=== PATIENT | female | born 1980 | race African-American/Black ===

== ENCOUNTER 2020-06-17 02:34 | Emergency (ER) | payer SELFPAY ==
[2020-06-17] MEDS ORDERED: Cephalexin 500 MG Cap PO ONE (03:12)
[2020-06-17] MEDS ORDERED: traMADol 50 MG Tab PO ONE (03:12)
[2020-06-17] MEDS ORDERED: Ibuprofen 600 MG Tab PO ONE (03:12)
--- NOTE | 2020-06-17 03:15 | EDM.PDOC ---
ED HPI GENERAL MEDICAL PROBLEM - General Chief Complaint: ENT Problem Stated Complaint: TOOTH PAIN Time Seen by Provider: 06/17/20 03:05 - History of Present Illness INITIAL COMMENTS - FREE TEXT/NARRATIVE: HISTORY AND PHYSICAL: History of present illness: This is a 39-year-old female who presents ER today secondary to pain to her left lower molar. Patient reports the pain has been intermittent for several years. Patient reports that she has seen a dentist approximately 2 weeks ago and was started on antibiotics. Patient reports she finished antibiotics approximately 1 week ago. Patient reports that she has had appointment see dentist again in June had surgery performed for removal of the tooth. Patient denies any other symptomatology. Patient has any recent fevers, shakes, chills, nausea, vomiting, diarrhea. Patient has no known drug allergies. Patient denies any tobacco alcohol or drugs. Review of systems: As per history of present illness and below otherwise all systems reviewed and negative. Past medical history: As per history of present illness and as reviewed below otherwise noncontributory. Surgical history: As per history of present illness and as reviewed below otherwise noncontributory. Social history: No reported history of drug or alcohol abuse. Family history: As per history of present illness and as reviewed below otherwise noncontributory. Physical exam: This patient was seen and evaluated during the 2019 SARS-CoV-2 novel coronavirus pandemic period. Community viral transmission is ongoing at time of this encounter and the emergency department is operating under pandemic response procedures. Constitutional: Patient is oriented to person, place, and time. Appears well- developed and well-nourished. No distress. HEENT: Moist mucous membranes Head: Normocephalic and atraumatic Eyes: Right eye exhibits no discharge. Left eye exhibits no discharge. No scleral icterus Neck: Normal range of motion. No tracheal deviation present. Cardiovascular: Normal rate and regular rhythm. Pulmonary: Effort normal, no respiratory distress. Abdominal: No distention Musculoskeletal: Normal range of motion Neurologic: Alert and oriented to person, place and time. Skin: [place], warm and dry. Psychiatric: Normal mood and affect. Behavior is normal. Judgment and thought content normal. Nursing note and vital signs have been reviewed Patient's ER physical exam is significant for tenderness to palpation and inflammation to her left lower molar. Patient has no trismus. No abscesses palpable. Therapeutics: Keflex, Motrin, Ultram Assessment and plan: This is a 39-year-old female who presents ER today secondary to dental pain. Patient's exam is consistent with a likely cavitated to her left lower molar. Patient has no evidence of airway compromise. Patient be started on Keflex, ibuprofen for pain and will be given a dose of Ultram here in ED. Patient has an appointment and follow-up already scheduled with a dentist. Reassessment at the time of disposition demonstrates that the patient is in no acute distress. The patient has remained stable throughout the entire ED visit and is without objective evidence for acute process requiring urgent intervention or hospitalization. The patient is stable for discharge, counseling is provided as documented above, discussed symptomatic treatment and specific conditions for return. I have spoken with the patient/caregiver and discussed todays findings, in addition to providing specific details for the plan of care. Questions are answered and there is agreement with the plan. Definitive disposition and diagnosis as appropriate pending reevaluation and review of above. dental pain Pain Score (Numeric/FACES): 10 - Related Data Allergies Allergy/AdvReac Type Severity Reaction Status Date / Time No Known Allergies Allergy Verified 06/17/20 03:03 Home Meds: Home Meds Ibuprofen 600 mg PO Q6HR PRN #30 tablet 06/17/20 [Rx] cephALEXin [Keflex] 500 mg PO Q6H #40 cap 06/17/20 [Rx] Past Medical History - Infectious Disease History Infectious Disease History: Reports: Mumps - Past Surgical History Female Surgical History: Reports: Section Social & Family History - Family History Family Medical History: No Pertinent Family History - Tobacco Use Tobacco Use Status *Q: Never Tobacco User - Recreational Drug Use Recreational Drug Use: No ED ROS GENERAL - Review of Systems Review Of Systems: See Below ED EXAM, GENERAL - Physical Exam Exam: See Below Course - Vital Signs Last Recorded V/S: Last Vital Signs Temp 97.8 F 06/17/20 02:57 Pulse 87 06/17/20 02:57 Resp 17 06/17/20 02:57 BP 120/73 06/17/20 02:57 Pulse Ox 99 06/17/20 02:57 - Orders/Labs/Meds Meds: Medications Discontinued Medications Generic Name Dose Route Start Last Admin Trade Name Freq PRN Reason Stop Dose Admin Cephalexin 500 mg 06/17/20 03:12 06/17/20 03:27 Cephalexin 500 Mg Cap PO 06/17/20 03:13 500 mg ONETIME ONE Administration Ibuprofen 600 mg 06/17/20 03:12 06/17/20 03:27 Ibuprofen 600 Mg Tab PO 06/17/20 03:13 600 mg ONETIME ONE Administration Tramadol HCl 50 mg 06/17/20 03:12 06/17/20 03:27 Tramadol 50 Mg Tab PO 06/17/20 03:13 50 mg ONETIME ONE Administration Departure - Departure Time of Disposition: 03:14 Disposition: Home, Self-Care 01 Condition: Good Clinical Impression: Dental abscess - Discharge Information Prescriptions: Ibuprofen 600 mg PO Q6HR PRN #30 tablet PRN Reason: Pain cephALEXin [Keflex] 500 mg PO Q6H #40 cap Instructions: Dental Abscess, [id number] Referrals: PCP,None [Primary Care Provider] - Forms: ED Department Discharge Additional Instructions: Your seen and evaluated in the ER today secondary to a dental abscess. Keflex 500 mg 4 times a day for 10 days. He will be given a prescription for ibuprofen to assist you with your pain. The following information is given to patients seen in the emergency department who are being discharged to home. This information is to outline your options for follow-up care. We provide all patients seen in our emergency department with a follow-up referral. The need for follow-up, as well as the timing and circumstances, are variable depending upon the specifics of your emergency department visit. If you don't have a primary care physician on staff, we will provide you with a referral. We always advise you to contact your personal physician following an emergency department visit to inform them of the circumstance of the visit and for follow-up with them and/or the need for any referrals to a consulting specialist. The emergency department will also refer you to a specialist when appropriate. This referral assures that you have the opportunity for follow-up care with a specialist. All of these measure are taken in an effort to provide you with optimal care, which includes your follow-up. Under all circumstances we always encourage you to contact your private physician who remains a resource for coordinating your care. When calling for follow-up care, please make the office aware that this follow-up is from your recent emergency room visit. If for any reason you are refused follow-up, please contact the [facility] Emergency Department at and asked to speak to the emergency department charge nurse. [facility] [address] [place] [id number] [facility] [address] [place] [id number] Sepsis Event Note (ED) - Evaluation Sepsis Screening Result: No Definite Risk
== END 2020-06-17 03:31 | disposition home or self-care (01) ==
LOC: MW.ED 02:34
DX: K04.7 Periapical abscess without sinus (principal)
CPT/HCPCS: 99282; A9270; 99283